=== PATIENT | male | born 1950 | race Caucasian/White ===

== ENCOUNTER 2019-01-15 13:02 | Inpatient (IN) | payer MEDICARE ==
[~2019-01-15] VITALS: Ht 170.2 cm; Wt 83.5 kg
[2019-03-10] VITALS (11 sets, daily range): BP systolic 102–161; BP diastolic 61–93; PULSE 40–94; TEMP 97–98.3
[2019-03-10] MEDS ORDERED: CIALIS20 MG PO (05:30)
[2019-03-10] MEDS ORDERED: FLOMAX 0.40.4 MG/CAP PO (05:30)
[2019-03-10] MEDS ORDERED: VITAMINC1000TA PO (05:31)
[2019-03-10] MEDS ORDERED: COZAAR 50MG50 MG/TAB PO (05:31)
[2019-03-10] MEDS ORDERED: NAPROSYN500 MG PO (05:32)
[2019-03-10] MEDS ORDERED: BIOTIN300 MCG PO (05:32)
[2019-03-10] MEDS ORDERED: STRESS FORMULA1 TA1 PO (05:32)
--- NOTE | 2019-03-10 10:20 | NUR ---
PT TO ROOM 327 PER BED WITH FAUZIA LAZO PACU REPROTING @1045. PT IS A/O X3, DENIES PAIN DRESSING TO RIGHT KNEE CDI WITH TRISHA WRAP OVER AQUQACEL. SCDS PLACED BILATERALLY, IV TO PUMP. BROTHER AT BEDSIDE.
--- NOTE | 2019-03-10 11:15 | NUR ---
PT EATING AND DRINGKING NO N.V.
--- NOTE | 2019-03-10 11:32 | NUR ---
Initial visit; Patient thanked partner marketing manager for looking in him and offering God's blessings.
--- NOTE | 2019-03-10 13:27 | NUR ---
SHONA met with the patient to discuss a discharge plan. The pt lives in [place] with his , Librado. The pt has a walker and reports independence with ADLs. The pt's PCP is Dr. Eliseo Nguyen and the pt receives his medications from [facility] in [place]. The pt reports no difficulties obtaining his medications. The pt does not have advanced directives in the EMR, but was interested in obtaining a DPOA-HC. SHONA provided the form. Upon discharge the pt plans to return home with outpatient therapy at [facility]. There are no additional needs at this time.
--- NOTE | 2019-03-10 14:25 | NUR ---
PT SLEEPING IN BED AT THIS TIME.
--- NOTE | 2019-03-10 16:25 | NUR ---
PT VOIDED IN URINAL.
--- NOTE | 2019-03-10 19:01 | NUR ---
report to Renae LAZO.
--- NOTE | 2019-03-10 20:00 | NUR ---
Report received. Assumed care for grant administrator. Assessment complete. Right lower extremity elevated on pillow. Kamran bandage with C/D/I aquacell under. Applied bilat SCDs and fresh ice. Plan of care discussed for ambulation this shift. Verbalizes understanding. Denies any c/o at this time. Will monitor.
[2019-03-11] VITALS (7 sets, daily range): BP systolic 133–152; BP diastolic 82–92; PULSE 84–107; TEMP 97.6–98.5
--- NOTE | 2019-03-11 06:00 | NUR ---
Has rested well this shift. Did ambulate approx 200 feet with walker/gait belt-tolerated well. Denies pain at this time-does not want to take any narcotics-rating pain low covered by scheduled tylenol. Voiding well. Tolerating PO. Technol brace on. Denies needs. Call light within reach. Bed in low position/wheels locked. Will monitor.
[2019-03-11 07:16] LABS: HEMOGLOBIN 12.4 g/dl (13.5-18.0)
--- NOTE | 2019-03-11 08:39 | NUR ---
ASSESSMENTS COMPLETE VSS, PT HAS DENIED PAIN THIS AM. DRESSING CDI. IV FLUIDS DISCONTINUED. PLAN ON DISCHARGE TO HOME TOMMORROW.
--- NOTE | 2019-03-11 10:44 | NUR ---
Follow-up visit; Patient thanked Mushroom Cultivator for looking in on him again, he had just requested another visit. Patient wanted to make sure he would be served [place]. assured Adrian he is listed as [facility] on the Census and will receive when [facility] make their rounds.
--- NOTE | 2019-03-11 18:36 | NUR ---
REPORT TO JYOTSNA LAZO.
--- NOTE | 2019-03-11 20:00 | NUR ---
Report received. Assumed care for coordinator of genetic services. Assessment complete. VS stable. Ambulated with PROCESS CONTROL BOARD OPERATOR in hallway with walker/stand by assist for approx 200 feet. Tolerated well. Technol brace on. Ice applied. Dressing clean/dry/intact. Bilat bobbi hose on. Voiding without difficulty. Denies questions or concerns. Call light in reach. Bed in low position/wheels locked. Will monitor.
[2019-03-12 04:00] VITALS: BP 145/91; PULSE 84; TEMP 98
--- NOTE | 2019-03-12 05:00 | NUR ---
Rested well this shift. Up already-technol brace off for fresh ice to be applied. Elevated on pillow-reminded to try to keep as straight as possible with pillow support below bend. Verbalizes understanding. Denies pain-states ice works better and doesnt want to take narcotics. Voiding without difficulty. Passing gas. Aquacell dressing C/D/I. Freeman hose on. Anticipating discharge home today. Denies any needs or questions at this time. Encouraged to call for needs. Call light within reach. Will monitor.
[2019-03-12] MEDS ORDERED: ASPI325T6 PO (06:28)
[2019-03-12] MEDS ORDERED: ROXICODONE 55 MG/TAB PO (06:29)
[2019-03-12] MEDS ORDERED: TYLENOL 500MG500 MG PO (06:29)
[2019-03-12 07:03] LABS: HEMOGLOBIN 11.5 g/dl (13.5-18.0)
[2019-03-12 07:13] LABS: HEMATOCRIT 33.2 % (42.0-52.0)
[2019-03-12 07:31] VITALS: BP 158/99; PULSE 84; TEMP 97.6
--- NOTE | 2019-03-12 08:00 | NUR ---
PATIENT IS SITTING UP IN THE CHAIR THIS MORNING WITH BREAKFAST TRAY. PATIENT IS A&OX4. VSS. BOWEL SOUNDS HYPOACTIVE ALL FOUR QUADRANTS. PATIENT TOLERATING FOOD & LIQUIDS WITHOUT ANY COMPLAINTS OF N/V. SHALLOW BREATHING NOTED. PATIENT DENIES SHORTNESS OF BREATH OF A PRODUCTIVE COUGH. POSITIVE PEDAL PULSES EQUAL BILATERALLY. CAP REFILL <3 SECONDS. CMS INTACT. NON-PITTING EDEMA TO RLE. AQUACEL TO RIGHT KNEE IS CD&I. KATY HOSE TO BLE. RLE ELEVATED ON PILLOW WITH ICE PACK IN PLACE. RIGHT HAND TO INT. CALL LIGHT WITHIN REACH. PATIENT DENIES ANY OTHER NEEDS AT THIS TIME.
--- NOTE | 2019-03-12 09:53 | NUR ---
PATIENT GIVEN 1 TABLET OF PRN ULTRAM FOR PAIN RATED AN 8/10 ON A 0-10 SCALE.
--- NOTE | 2019-03-12 10:46 | NUR ---
PATIENT GIVEN 2ND TABLET OF PRN ORAL ULTRAM. PATIENT RATING HIS PAIN A 5/10 ON A 0-10 SCALE. PATIENT REFUSING OXYCODONE.
--- NOTE | 2019-03-12 12:10 | NUR ---
PATIENT'S RIGHT WRIST INT DISCONTINUED PER PENDING DISCHARGE. TIP INTACT. PATIENT TOLERATED WELL. PATIENT PERSONAL BELONGINGS GATHERED. DISCHARGE INSTRUCTIONS REVIEWED WITH PATIENT AND FAMILY. ALL QUESTIONS ANSWERED. NO OTHER NEEDS AT THIS TIME.
--- NOTE | 2019-03-12 12:27 | NUR ---
PATIENT TAKEN TO PERSONAL VEHICLE VIA WHEELCHAIR BY SURGICAL STAFF. PATIENT DISCHARGED.
== END 2019-03-12 12:27 | disposition home or self-care (01) | DRG 470 ==
LOC: JCC 03-10 05:10
PROVIDERS: Physician Assistant; ADMIT Orthopaedic Surgery
PROC: 0SRC0J9 Replacement of Right Knee Joint with Synthetic Substitute, Cemented, Open Approach (ICD-10-PCS; principal; 2019-03-10 07:30)
DX: M17.11 Unilateral primary osteoarthritis, right knee (principal); I10 Essential (primary) hypertension
CPT/HCPCS: A9284; C1713; C1776; J0690; J1100; J2250; J2370; J2704; J7120; J7121

== ENCOUNTER 2022-04-25 05:11 | Day surgery (SDC) | payer MEDICARE ==
[~2022-04-25] VITALS: Ht 170.2 cm; Wt 85.6 kg
[2022-04-25] VITALS (13 sets, daily range): BP systolic 112–1132; BP diastolic 71–96; PULSE 78–92; TEMP 97.3–98.3
[~2022-04-25 05:11] MED LIST: ASPI325T6 PO; BIOTIN300 MCG PO; CIALIS20 MG PO; COZAAR 50MG50 MG/TAB PO; FLOMAX 0.40.4 MG/CAP PO; NAPROSYN500 MG PO; ROXICODONE 55 MG/TAB PO; STRESS FORMULA1 TA1 PO; TYLENOL 500MG500 MG PO; VITAMINC1000TA PO
[2022-04-25] MEDS ORDERED: FLOMAX 0.40.4 MG/CAP PO (06:31)
[2022-04-25] MEDS ORDERED: COZAAR 50MG50 MG/TAB PO (06:31)
[2022-04-25] MEDS ORDERED: MULTI VITAMINS1 TAB PO (06:32)
[2022-04-25] MEDS ORDERED: B COMPLEX #11 TA1 PO (06:32)
--- NOTE | 2022-04-25 10:44 | NUR ---
PATIENT WAS ADMITTED TO SURGICAL AT 9::45AM. PATIENT IS ALERT X 3 WITH NO PAIN AT THIS TIME. LUNG CLEAR BUT NOTICES DIAPHRAM ON LEFT DOES NOT INFLAT(PER PATIENT) O2 ON AT 1 LITER WITH O2 SAT AT 96%. PATIENT INFORM THAT HE HAS OXYGEN ON AT TIMES BUT USE IT MOSTLY AT NIGHT. PATIENT ABLE TO GRIB WITH GOOD EQUAL STRENGHT. PATIENT UNABLE TO MOVE LEG FULLY YET BUT DOES FEEL THE SENSATION. ICE PACK IN PLACE. IV 18G ON LEFT HAND.
--- NOTE | 2022-04-25 11:53 | NUR ---
PATIENT HAS PAIN OF 2/10 AND REQUESTIONG A PAIN MEDICATION. GAVE OXY 10MG ORDER. I ALSO INCREASE DIET TO REGULAR AND HELP ORDER LUNCH FOR HIM.
--- NOTE | 2022-04-25 13:24 | NUR ---
Pt. resting supine in bed. HOB elevated approx 30 degrees. Ate a regular lunch and has tolerated this so far w/out nausea or abd. pain Left knee betty wrap is CDI. Ice pack remains to left knee. Pt. was given pain medication before lunch. Encouraged pt. to try to urinate. Pt. denies further needs. Call light is within his reach
--- NOTE | 2022-04-25 14:27 | NUR ---
GAVE THE PATIENT THE URINAL TO SEE IF HE CAN URINATE. 30 MIN LATER PATIENT UNABLE TO URINATED. GAVE HIM ANOTHER JUG OF WATER. DID A BLADDER SCANNER AND THERE WAS ONLY 298ML. PATIENT SAID HE DOESN'T FEEL UNCOMTFORTABLE. HE SAID HE CAN FEEL HIS LEG AND ABLE TO MOVE TOES,. UNABLE TO RECOATING MACHINE OPERATOR LEG. WILL CONTINUE TO MONITOR PATIENT. PAIN RIGHT NOW IS A 1/10 IN PAIN SCALE.
[2022-04-25] MEDS ORDERED: CELEBREX 200MG200 MG PO (15:19)
[2022-04-25] MEDS ORDERED: ROXICODONE 55 MG/TAB PO (15:19)
[2022-04-25] MEDS ORDERED: ASPI325T6 PO (15:19)
[2022-04-25] MEDS ORDERED: TYLENOL 500MG500 MG PO (15:20)
--- NOTE | 2022-04-25 17:59 | NUR ---
PATIENT CONTINUE TO USE THE I.S AND REPORT HE IS UP TO [address]. PATIENT ALSO VOIDED USING THE URINAL
--- NOTE | 2022-04-25 21:16 | NUR ---
HAD EPISODE WITH EMESIS AND FEELING LIGHTHEADED ON FIRST ATTEMPT TO WALK. AFTER RESTING WAS ABLE TO GET UP AND AMBULATE TO DOORWAY AND BACK TO BED WITH WALKER AND 1 ASSIST. DOES WELL. DRSG TO LEFT KNEE WITH AQUACEL DRSG AND TRISHA WRAP INTACT. INT TO LEFT HAND FLUSHES WELL.
--- NOTE | 2022-04-26 00:10 | NUR ---
SCHEDULED ES TYLENOL GIVEN WITH OXYCODONE FOR LEFT KNEE PAIN. WEARING OXYGEN AT 0.5L/NC PER HIS HOME ROUTINE AT HS. INT TO LEFT HAND FLUSHES WELL.
[2022-04-26 00:58] VITALS: BP 144/86; PULSE 93; TEMP 97.6
--- NOTE | 2022-04-26 04:00 | NUR ---
IV ANTIBIOTIC GIVEN. PT DENIES NEED FOR PAIN MEDS AT THIS TIME.
[2022-04-26 04:02] VITALS: BP 144/80; PULSE 94; TEMP 97.4
--- NOTE | 2022-04-26 06:51 | NUR ---
awake and ready to order breakfsat bedside shift report received from CLIFTON Rush
[2022-04-26 06:57] LABS: HEMOGLOBIN 11.2 g/dl (13.5-18.0)
[2022-04-26 07:15] LABS: HEMATOCRIT 31.4 % (42.0-52.0)
--- NOTE | 2022-04-26 07:15 | NUR ---
sitting up in bed waiting for breakfast, full assessment completed, see interventions for further info, betty wrap removed,
[2022-04-26 07:39] VITALS: BP 000/00; BP 145/65; PULSE 00; PULSE 71; TEMP 00
--- NOTE | 2022-04-26 07:40 | NUR ---
Maryan Prado in to see patient,
[2022-04-26 08:16] VITALS: BP 163/92; PULSE 105; TEMP 97.9
--- NOTE | 2022-04-26 08:30 | NUR ---
physical therapy in to work with patient, ambulated out in [place] and then to room and sitting up in recliner
--- NOTE | 2022-04-26 09:58 | NUR ---
occupational therapy was in and worked with patient, am care completed and dressed
--- NOTE | 2022-04-26 10:50 | NUR ---
remains up in chair, visiting with litigation support analyst, denies needs
[2022-04-26 11:07] VITALS: BP 154/80; PULSE 99; TEMP 98.4
--- NOTE | 2022-04-26 11:17 | NUR ---
SW met with the patient to discuss discharge plan. The patient lives in [place] with his , Angel Sinclair (ph#[phone]). He reports independence with ADLs and has a rollator, crutches, and wheelchair. He has home oxygen that he uses at night and as needed. The patient's PCP is Dr. Eliseo Nguyen and he receives his medications from [facility]. The patient does not have a DPOA-HC and he was not interested in completing one at this time. The patient plans to return home with his upon discharge. No additional needs at this time.
--- NOTE | 2022-04-26 14:20 | NUR ---
discharge instructions given to patient, verbalizes understanding
--- NOTE | 2022-04-26 15:19 | NUR ---
Andree: Voodoo Situation: Flame Cutting Machine Operator stopped by room on rounds Background: Pt was resting and content Assessment: Pt asked for prayer, fast food server prayed, pt appreciated the visit Recommendation: fast food server will follow up as needed
--- NOTE | 2022-04-26 15:20 | NUR ---
discharged per WC
== END 2022-04-26 15:20 | disposition home or self-care (01) ==
LOC: SDCO 05:11 → SURG 05:11 → EDSTATUS 09:30 → SURG 09:30 → SDCO 09:30 → SURG 09:47 → SDCO 04-26 15:20
PROVIDERS: Physician Assistant
DX: M65.862 Other synovitis and tenosynovitis, left lower leg (principal)
CPT/HCPCS: OP; A9284; C1713; C1776; J0690; J1100; J2250; J2704; J7120; J7121

== ENCOUNTER 2022-09-11 14:14 | Inpatient (IN) | payer MEDICARE ==
[~2022-09-11] VITALS: Ht 167.6 cm; Wt 87.4 kg
[~2022-09-11 14:14] MED LIST changes: +B COMPLEX #11 TA1 PO; +CELEBREX 200MG200 MG PO; +MULTI VITAMINS1 TAB PO
[2022-11-21] VITALS (11 sets, daily range): BP systolic 74–172; BP diastolic 47–94; PULSE 44–103; TEMP 97.4–98.8
[2022-11-21 15:37] LABS: BASO % 0.2 % (0.0-2.0); EOS % 0.1 % (0.0-4.0); GRAN # 11.5 K/mm3 (1.4-6.5); GRAN % 88.2 % (42.2-75.2); HEMOGLOBIN 11.6 g/dl (13.5-18.0); LYMPH # 0.6 K/mm3 (1.2-3.4); LYMPH % 4.9 % (20.0-51.0); MEAN CELL VOLUME 90 fl (80.0-100.0); MEAN CORPUSCULAR HEMOGLOBIN 30 pg (27-31); MEAN CORPUSCULAR HGB CONC 34 g/dl (33.0-37.0); MEAN PLATELET VOLUME 8.6 fl (7.4-10.4); MONO # 0.8 K/mm3 (0.1-0.6); MONO % 6.4 % (1.7-9.3); PLATELET COUNT 158 K/mm3 (130-400); RED BLOOD COUNT 3.82 M/mm3 (4.20-5.60); REDCELL DISTRIBUTION WIDTH-CV 12.2 % (11.5-14.5)
[2022-11-21 15:42] LABS: HEMATOCRIT 34.3 % (42.0-52.0)
[2022-11-21 15:54] LABS: ALANINE AMINOTRANSFERASE 25 U/L (0-55); ALBUMIN 3.3 gm/dL (3.4-4.8); ALKALINE PHOSPHATASE 101 U/L (40-150); ANION GAP 10 mmol/L (7-16); AST,SGOT 25 U/L (5-34); BILIRUBIN,TOTAL 0.8 mg/dL (0.2-1.2); BLOOD UREA NITROGEN 17 mg/dL (8-26); CALCIUM 8.4 mg/dL (8.4-10.2); CARBON DIOXIDE 25 mmol/L (23-31); CHLORIDE 101 mmol/L (98-107); GLUCOSE 206 mg/dL (70-99); POTASSIUM 4.1 mmol/L (3.5-4.5); SODIUM 136 mmol/L (136-145); TOTAL PROTEIN 6.3 gm/dL (6.2-8.1)
[2022-11-21 16:17] LABS: TSH w REFLEX 0.921 uIU/mL (0.350-4.940)
--- NOTE | 2022-11-21 16:22 | NUR ---
1125 Pt care transferred from PACU status, held in PACU bay 3 until room available on surgical floor. Monitors attached, intervals and alarms set. Pt is alert and oriented x3 and VSS on home O2 amount. Ice tea and pudding provided, pt tolerating well. 1140 Pt BP elevated, medication administered per order. Family was called with pt update and room number. 1155 VSS on O2, pt denies any needs at this time. Report called to CLIFTON Best. Holding pt until RN calls to say room is clean. 1250 Pt transferred via bed to room 324. Monitors attached and alarms set. VSS on O2. Aid at bedside. RN made aware that pt is in room. Phone at bedside and belongings in closet.
[2022-11-21 16:25] LABS: TROPONIN-I < 0.010 ng/mL (0.00-0.033)
--- NOTE | 2022-11-21 19:00 | NUR ---
RECEIVED CHANGE OF SHIFT REPORT FROM DAY SHIFT RN. PATIENT RESTING IN BED WITH NO REPORTED NEEDS AT TIME OF REPORT. INT IN PLACE, TELE IN PLACE.
[2022-11-22 03:57] VITALS: BP 138/68; PULSE 84; TEMP 97.5
[2022-11-22 06:37] LABS: COLLECTION METHOD CLEAN CATCH; URINE APPEARANCE Clear (CLEAR/HAZY); URINE BLOOD Negative (NEGATIVE); URINE COLOR Yellow (YELLOW); URINE GLUCOSE Negative (NEGATIVE); URINE KETONE Negative (NEGATIVE); URINE NITRATE Negative (NEGATIVE); URINE PROTEIN(semi-quant) Negative (NEGATIVE); URINE UROBILINOGEN 0.2 E.U/dL (0.2-1.0)
[2022-11-22 06:38] LABS: MUCOUS Present (NOT PRESENT); SQUAMOUS EPITHELIAL None Seen /hpf (0-10); URINE BACTERIA None Seen /hpf (NONE SEEN); URINE RBC None Seen /hpf (0-2)
[2022-11-22 06:47] LABS: HEMATOCRIT 33.4 % (42.0-52.0); HEMOGLOBIN 11.4 g/dl (13.5-18.0)
--- NOTE | 2022-11-22 07:02 | NUR ---
CHANGE OF SHIFT REPORT GIVEN TO DAY SHIFT RNYASH. PATIENT RESTING IN BED, PASSED LOOSE SMALL BROWN STOOL AND PASSED FLATUS. DENIES CHEST PAIN/SOA THIS SHIFT. REPORTED HAD TOLERATED WALKING TO DOOR AFTER MOST RECENT VS TAKEN. OXYGEN CONTINUES PER NC, RATE INCREASED WHEN LAYING FLAT IN BED WHEN TAKEN OFF BEDPAN.
[2022-11-22 07:07] VITALS: BP 132/68; PULSE 91; TEMP 98.3
--- NOTE | 2022-11-22 07:07 | NUR ---
Received shift report from the night worker Michelle LAZO.
[2022-11-22] MEDS ORDERED: CELEBREX 200MG200 MG PO (07:54)
[2022-11-22] MEDS ORDERED: ASPI325T6 PO (07:54)
[2022-11-22] MEDS ORDERED: TYLENOL 500MG500 MG PO (07:55)
[2022-11-22] MEDS ORDERED: ROXICODONE 55 MG/TAB PO (07:55)
--- NOTE | 2022-11-22 08:58 | NUR ---
Physical therapist at bedside assisting patient to ambulate in the hallway. Patient tolerated it well with no episode of Shortness of breath.
--- NOTE | 2022-11-22 09:02 | NUR ---
SHONA met with the patient to discuss discharge plan. The patient lives in [place] with his , Angel Neumann. He reports independence with ADLs and has a rollator, crutches, and home oxygen from [facility] in [place]. The patient's PCP is Dr. Eliseo Nguyen and he receives his medications from [facility]. The patient does not have a DPOA-HC, but he was interested in obtaining a form. SW provided. The patient plans to return home with his and receive outpatient PT at [facility] in [place]. No additional needs at this time. *Discharge plan: home with outpatient PT* Angel Neumann ph#[phone]
--- NOTE | 2022-11-22 10:06 | NUR ---
Patient resting in bed alert and oriented. Patient denies of episodes of shortness of breath. Kamran wrap dressing to right knee dry and intact. Ice pack applied to the affected area. Patient remains on 02 3.5L N/C. Patient denies needs at this time.
[2022-11-22 11:19] VITALS: BP 154/81; PULSE 92; TEMP 97.8
--- NOTE | 2022-11-22 13:36 | NUR ---
Bulky dressing removed from the right knee and applied Aquacell dressing and bobbi stockings on. Ice pack applied to the area. Patient tolerated well. Family at the bedside.
--- NOTE | 2022-11-22 14:20 | NUR ---
Initial visit: Pt was resting and content with brother and in the room. Pt has no needs but did ask for a prayer. Electronic Musical Instrument Repairer prayed with family and pt. Electronic Musical Instrument Repairer will follow up as needed.
[2022-11-22 15:13] VITALS: BP 142/76; PULSE 92; TEMP 97.8
--- NOTE | 2022-11-22 16:35 | NUR ---
Discharge instruction given, patient verbalized understanding. INT and telemonitor discontinued. Patient requests for pain medication , Roxicodone administered. Patient escorted out of the unit to the ER entrance via wheelchair with portable oxygen. Aquacel dressing given to take home per orders. Family members accompany to the ER entrance.
== END 2022-11-22 16:34 | disposition home or self-care (01) | DRG 468 ==
LOC: SURG 11-19 07:30 → INPTSU 11-21 06:22 → SURG 11-21 07:30
PROVIDERS: Internal Medicine; Physician Assistant; ADMIT Orthopaedic Surgery
PROC: 0SRC0J9 Replacement of Right Knee Joint with Synthetic Substitute, Cemented, Open Approach (ICD-10-PCS; 2022-11-21)
PROC: 0SPC0JZ Removal of Synthetic Substitute from Right Knee Joint, Open Approach (ICD-10-PCS; principal; 2022-11-21 08:30)
DX: T84.82XA Fibrosis due to internal orthopedic prosthetic devices, implants and grafts, initial encounter (principal); I95.9 Hypotension, unspecified; D64.9 Anemia, unspecified; I49.5 Sick sinus syndrome; I10 Essential (primary) hypertension; M19.90 Unspecified osteoarthritis, unspecified site; K21.9 Gastro-esophageal reflux disease without esophagitis; G47.33 Obstructive sleep apnea (adult) (pediatric); Z96.653 Presence of artificial knee joint, bilateral; M25.661 Stiffness of right knee, not elsewhere classified; N40.0 Benign prostatic hyperplasia without lower urinary tract symptoms; E78.5 Hyperlipidemia, unspecified; I44.0 Atrioventricular block, first degree; Z23 Encounter for immunization; Z99.81 Dependence on supplemental oxygen
CPT/HCPCS: A9284; C1713; C1776; J0690; J1100; J1170; J2250; J2405; J2704; J3370; J7120; J7121